=== PATIENT | female | born 1940 | race African-American/Black ===

== ENCOUNTER 2017-12-06 00:54 | Emergency (ER) | payer BC, OTHER ==
[~2017-12-06] VITALS: Ht 167.6 cm; Wt 60.0 kg
[2017-12-06 02:19] VITALS: BP 152/80
== END 2017-12-06 02:19 | disposition home or self-care (01) ==
LOC: ER 00:54
DX: I10 Essential (primary) hypertension (principal)
CPT/HCPCS: 99283

== ENCOUNTER 2022-04-21 02:59 | Emergency (ER) | payer BC, MEDICARE ==
[~2022-04-21] VITALS: Ht 170.2 cm; Wt 65.0 kg
[2022-04-21 03:56] VITALS: BP 156/91
== END 2022-04-21 04:10 | disposition home or self-care (01) ==
LOC: ER 03:37
DX: I10 Essential (primary) hypertension (principal)
CPT/HCPCS: 99283